=== PATIENT | female | born 1995 ===

== ENCOUNTER 2016-08-16 16:00 | Outpatient (CLI) | payer OTHER ==
[2016-08-16] VITALS (7 sets, daily range): BP systolic 130–146; BP diastolic 89–97
[~2016-08-16] VITALS: Ht 162.6 cm; Wt 68.0 kg
[2016-08-16 16:34] LABS: MEAN CORPUSCULAR HEMOGLOBIN 30.8 pg (27.0-33.0); MEAN CORPUSCULAR HGB CONC 32.9 g/dl (32.0-36.5); MEAN CORPUSCULAR VOLUME 93.7 fl (80.0-96.0); RED CELL DISTRIBUTION WIDTH 13.6 % (11.5-14.5); WHITE BLOOD COUNT 9.1 K/mm3 (4.0-10.0)
[2016-08-16 17:02] LABS: ALBUMIN 2.8 GM/DL (3.2-5.2); ALBUMIN/GLOBULIN RATIO 0.67 (1.00-1.93); ALKALINE PHOSPHATASE 168 U/L (45-117); ALT/SGPT 13 U/L (12-78); ANION GAP 6 MEQ/L (8-16); AST/SGOT 8 U/L (15-37); BILIRUBIN,TOTAL 0.6 MG/DL (0.2-1.0); BLOOD UREA NITROGEN 7 MG/DL (7-18); CALCIUM LEVEL 8.8 MG/DL (8.5-10.1); CARBON DIOXIDE LEVEL 27 MEQ/L (21-32); CHLORIDE LEVEL 106 MEQ/L (98-107); GLOMERULAR FILTRATION RATE > 60.0 (>60); GLUCOSE, FASTING 91 MG/DL (70-105); POTASSIUM SERUM 3.8 MEQ/L (3.5-5.1); SODIUM LEVEL 139 MEQ/L (136-145)
[2016-08-16] MEDS ORDERED: ELID1CRE10 TOP (17:02)
[2016-08-16] MEDS ORDERED: ACET50TA PO (17:02)
[2016-08-16] MEDS ORDERED: PRENTAB9 PO (17:02)
[2016-08-16] MEDS ORDERED: CALCCHW3 PO (17:02)
== END 2016-08-16 18:53 | disposition home or self-care (01) ==
LOC: M LDO 16:00
PROVIDERS: ATTEND Obstetrics & Gynecology
DX: O26.893 Other specified pregnancy related conditions, third trimester (principal); Z3A.38 38 weeks gestation of pregnancy; R03.0 Elevated blood-pressure reading, without diagnosis of hypertension; F41.9 Anxiety disorder, unspecified; F32.9 Major depressive disorder, single episode, unspecified; G43.909 Migraine, unspecified, not intractable, without status migrainosus; O99.343 Other mental disorders complicating pregnancy, third trimester; Z91.040 Latex allergy status; Z88.2 Allergy status to sulfonamides; Z88.8 Allergy status to other drugs, medicaments and biological substances; Z91.041 Radiographic dye allergy status; O99.353 Diseases of the nervous system complicating pregnancy, third trimester

== ENCOUNTER 2016-08-23 07:06 | Inpatient (IN) | payer OTHER ==
[~2016-08-23] VITALS: Ht 162.6 cm; Wt 69.0 kg
[2016-08-23] VITALS (43 sets, daily range): BP systolic 110–175; BP diastolic 67–109
[~2016-08-23 07:06] MED LIST: ACET50TA PO; CALCCHW3 PO; ELID1CRE11 TOP; PRENTAB9 PO
[2016-08-23] MEDS ORDERED: LR 1,000 ML IV SCH ×2 (08:53)
[2016-08-23] MEDS ORDERED: OXYTOCIN DRIP 30 UNITS in APPROPRIATE DILUENT 1 EA IV SCH ×2 (09:00→20:11)
[2016-08-23] MEDS ORDERED: LABETALOL 200 MG TAB PO SCH (09:00)
[2016-08-23 09:06] LABS: MEAN CORPUSCULAR HEMOGLOBIN 30.5 pg (27.0-33.0); MEAN CORPUSCULAR HGB CONC 33.8 g/dl (32.0-36.5); MEAN CORPUSCULAR VOLUME 90.3 fl (80.0-96.0); RED CELL DISTRIBUTION WIDTH 13.6 % (11.5-14.5)
--- NOTE | 2016-08-23 09:15 | HPEPDOC ---
Obstetrical History & Physical General Date of Admission Aug 23, 2016 at 07:06 History of Present Illness 21 y/o at 39+2 here for IOL due to CHTN. No LOF/VB. Having ctx's, not feeling them. Pos FM (Christ) Chief Complaint: Induction of labor Information Provided By: Patient Care Care: Good Care Dating Final EDC by: 1st trimester (US) Antepartum Course Diagnos(e)s Rubella Non-immune H/O migraines anxiety/depression CHTN Past Medical History Past Obstetrical History : Past Obstetrical History: Multigravida [employer] History: Spontaneous (x1 2016), Theraputic (2013 x1) Past Medical History Medical History anxiety/depression CHTN migraines Surgical History: Tonsilectomy, Other (ear tubes) Family History Significant Family History: No pertinent family hx Social History Marital Status: Family situation: Spouse/partner home Psychosocial History: Anxiety, Depression * Smoker: non-smoker Alcohol: Denies Drugs: denies Abuse Violence Screening Have you been hit/kicked/slapp: No Have you been sexually assault: No Imunizations Tdap status: current Influenza Status: declined Allergies Coded Allergies: Blue Dyes (Parenteral) (Verified Allergy, Intermediate, SKIN TURNS RED AND ITCHY, 08/16/16) ALL BLUE DYES- IN FOOD,DRINKS AND SKIN PRODUCTS Latex (Verified Allergy, Intermediate, RAISED RASH, 08/16/16) Sulfa Antibiotics (Verified Allergy, Intermediate, HIVES, 08/16/16) Sulfamethoxazole w/Trimethoprim (Verified Allergy, Intermediate, hives, ) Medications Scheduled Calcium Carbonate (Calci-Chew) 1,250 Mg Chw, 1,250 MG PO DAILY Multivitamins/ ( 27-0.8 mg) 1 Tab Tab, 1 TAB PO DAILY Pimecrolimus (Elidel) 1 % Cre, 0 TOP DAILY for ECZEMA Miscellaneous Medications Acetaminophen (Mapap) 500 Mg Tab, 1,000 MG PO for EAR PAIN Physical Examination Physical Examination GENERAL: Alert and oriented times three. ABDOMEN: Gravid and non-tender to touch. FETUS: Is vertex (VTX) by sterile vaginal examination SVE: 3/75/-2 HEART RATE: Regular rate and rhythm. LUNGS: Clear to auscultation (CTA). EXTREMITIES: No edema. No clonus. DTR's normal Laboratory Data 24H LABS Laboratory Tests 2 08/23/16 07:58: Serology Scanned Report Hepatitis B Testing Urine Culture: No Growth Pertinent Laboratoy Data Blood Type: O+ RBC Antibody Screen: Negative HIV: Negative Hepatitis B: Negative Hepatitis C: Unknown Rapid Plasma Reagin: Nonreactive Rubella: Nonreactive (nonimmune) Varicella: Immune Chlamydia/Gonorrhea: Negative Group B Streptococcus: Negative Quad Screen Test: Declined Cystic Fibrosis: Declined Glucose Tolerance Test: 119 Anatomy Ultrasound Ultrasound Date: Apr 15, 2016 Placenta Location: Posterior Normal Anatomy: Yes Placenta Previa: No Other Ultrasounds [id number] grth scan showed 31%ile, nl scan Steroid Therapy Steroid Therapy: No Vaginal Examination Dilation: 3 cm Effacement: 75% Station: -2 Cervical Consistency: Medium Cervical Position: Anterior Presentation: Cephalic presentation Assessment Variability: Moderate Accelerations: Positive Decelerations: None Tocometer Contractions: Yes Frequency: irregular Duration: less than 60 seconds Strength: palpated as mild Assessment/Plan Assessment 39+3 CHTN. Several severe range BP's upon initial assessment/admission. Urine Pr/Cr and serum r/o pre-e labs with admit labs. If no evid signif proteinuria or serum abnl's, will give her some PO labetalol. If signs Pre-E or continued severe range BP's will start Mag Sulfate and her dx will CHTN with SI Pre-E, +/- severe seatures (ongoing dx as of yet). Of note, pt is EXCEEDINGLY anxious, and myself and the RN had to talk her into and through her IV, cx check, etc etc. Plan Admit and orient. Configuration Management Specialist and consent. Diet: clrs Group B Streptococcus (GBS) negative Labs and intravenous (IV) per unit protocol. Counseled on Pitocin and induction of labor (IOL). Will start the pitocin now with her favorable Cx. Lactated Ringers (LR): 125/hr, bolus per SOP prior to epidural (on demand) Anticipate normal spontaneous delivery () MMR prior to d/c from hospital C-S as appropriate. Sessions MD LANCASTER,YODIT Tate MD Aug 23, 2016 09:15
[2016-08-23 09:34] LABS: ALT/SGPT 10 U/L (12-78); AST/SGOT 12 U/L (15-37); BILIRUBIN,TOTAL 0.5 MG/DL (0.2-1.0); CREATININE FOR GFR 0.58 MG/DL (0.55-1.02); GLOMERULAR FILTRATION RATE > 60.0 (>60); URIC ACID 5.5 MG/DL (2.6-6.0)
[2016-08-23] MEDS ORDERED: LACTATED RINGER'S 1000 ML IV ONE (11:45)
[2016-08-23] MEDS ORDERED: FENTANYL 2MCG/ML ROPIVACAINE 0.2% IN 0.9% NACL 200ML IVBAG As Ordered ONE (12:23)
[2016-08-23] MEDS ORDERED: LACTATED RINGER'S 1000 ML IV PRN (13:00)
[2016-08-23] MEDS ORDERED: REFRIGERATOR IV KEYS XX PRN (13:00)
[2016-08-23] MEDS ORDERED: EPIDURAL COMMENT XX SCH (13:00)
[2016-08-23] MEDS ORDERED: diphenhydrAMINE INJ 50MG/ML VIAL (J1200) IV PRN (13:00)
[2016-08-23] MEDS ORDERED: ePHEDrine SULFATE 25 MG/5 ML(5MG/ML) SYRINGE IV PRN (13:00)
[2016-08-23] MEDS ORDERED: NALOXONE INJ 0.4 MG/1 ML VIAL (J2310) IV PRN (13:00)
[2016-08-23] MEDS ORDERED: EPIDURAL/PCA KEYS XX PRN (13:00)
[2016-08-23] MEDS ORDERED: FENTANYL/ROPIVACAINE/NACL BAG 200 ML EPIDURAL SCH (13:00)
[2016-08-23] MEDS ORDERED: ONDANSETRON 4MG/2ML VIAL (J2405) IV PRN (13:00)
--- NOTE | 2016-08-23 14:47 | IPNPDOC ---
Text Note Date of Service The patient was seen on 08/23/16. NOTE Pit at 12 mu/min, reg ctx's Now s/p epidural and reports some LOF NST mostly Cat 1, now cat 2 with early decels Cx /-1, obv bloody show and sheets quite wet, c/w SROM just now Doing well, will watch NST closely and recheck in ~2 hrs, sooner prn Sessions VS,Jada, I+O VS, Jada I+O Laboratory Tests 08/23/16 08:52 Red Blood Count 3.88 L, Mean Corpuscular Volume 90.3, Mean Corpuscular Hemoglobin 30.5, Mean Corpuscular Hemoglobin Concent 33.8, Red Cell Distribution Width 13.6, Aspartate Amino Transf (AST/SGOT) 12 L, Alanine Aminotransferase (ALT/SGPT) 10 L, Lactate Dehydrogenase 158, Total Bilirubin 0.5 , Uric Acid 5.5 Vital Signs Date Time Temp Pulse Resp B/P (MAP) Pulse Ox O2 Delivery O2 Flow Rate FiO2 08/23/16 13:55 68 123/74 (90) 08/23/16 12:04 98.3 18 SESSIONS,YODIT Tate MD Aug 23, 2016 14:47
--- NOTE | 2016-08-23 17:17 | IPNPDOC ---
Text Note Date of Service The patient was seen on 08/23/16. NOTE NST Cat 2, mod adrian, no persistent decels, reg ctx's Cx C/C/+2/SAVANAH lots of explanation after lots of questions Start pushing Sessions VS,Jada, I+O VS, Jada, I+O Laboratory Tests 08/23/16 08:52 Red Blood Count 3.88 L, Mean Corpuscular Volume 90.3, Mean Corpuscular Hemoglobin 30.5, Mean Corpuscular Hemoglobin Concent 33.8, Red Cell Distribution Width 13.6, Aspartate Amino Transf (AST/SGOT) 12 L, Alanine Aminotransferase (ALT/SGPT) 10 L, Lactate Dehydrogenase 158, Total Bilirubin 0.5 , Uric Acid 5.5 Vital Signs Date Time Temp Pulse Resp B/P (MAP) Pulse Ox O2 Delivery O2 Flow Rate FiO2 08/23/16 13:55 68 123/74 (90) 08/23/16 12:04 98.3 18 SESSIONS,YODIT Tate MD Aug 23, 2016 17:17
[2016-08-23] MEDS ORDERED: MEASLES,MUMPS,RUBELLA VACCINE INJ (MMR-II) (90707) SC SCH (20:15)
[2016-08-23] MEDS ORDERED: METOCLOPRAMIDE INJ 10MG/2ML VIAL (J2765) IV PRN (20:15)
[2016-08-23] MEDS ORDERED: RHOGAM 300 MCG (1500 IU) INJ (J2790) IM SCH (20:15)
[2016-08-23] MEDS ORDERED: DIBUCAINE 1% OINTMENT 30GM TOP PRN (20:15)
--- NOTE | 2016-08-23 20:22 | DNPDOC ---
[facility] Delivery Note Delivery Note DATE OF DELIVERY: Aug 23, 2016 at 07:06 PREDELIVERY DIAGNOSIS: 39 2/7 weeks' gestation and labor. POST DELIVERY DIAGNOSIS: Delivered. PROCEDURE: Spontaneous vaginal delivery SUSTAINABILITY MANAGER: ANESTHESIA: epidural ESTIMATED BLOOD LOSS: 200 mL. FINDINGS: 6pound 15ounce male infant, Score 6/9, nuchal cord times 1 DELIVERY SUMMARY: Pushed well for most of 2 hours but was exhausted and also noted to have 5 late decels in a row. Consented for outlet vacuum. Station +3 , SAVANAH, slight asynclitism noted. R/B/I/A d/w pt and Dr Azevedo present (NICU). Placed along sagittal suture 1-2 cm from post fontanelle. No pop-offs, good descent with each push, good effort. No epis needed. Pressure released after each set ctx's. With vtx del, rotated spontaneously to RIGO, vac removed, cord reduced and no delay of either ant/post shoulder. To abd on a towel. Cord C/C by FOB. then to resuscitation table. Cord blood. Placenta intact. Fundus firm, pit going. Right labial lac and small lac on post vag wall both repaired with 3-0 vicryl, no perineal lac. Good hemostasis/cosmesis. Uncomplicated. Sessions MD LANCASTER,YODIT Tate MD Aug 23, 2016 20:22
[2016-08-23] MEDS ORDERED: LABETALOL 200 MG TAB PO ONE (20:30)
[2016-08-23] MEDS: IBUPROFEN 800 MG TAB PO PRN (20:39)
[2016-08-23] MEDS ORDERED: DOCUSATE SODIUM 100 MG CAP PO SCH (21:00)
[2016-08-24] MEDS: ACETAMINOPHEN TAB 650MG DOSE (2X325MG) PO PRN ×3 (00:31→18:01)
[2016-08-24] MEDS: IBUPROFEN 800 MG TAB PO PRN ×2 (05:05→14:53)
--- NOTE | 2016-08-24 05:28 | IPNPDOC ---
Text Note Date of Service The patient was seen on 08/24/16. NOTE PPD1 prog note States feeling well, no complaints. No heavy VB. Pain controlled. Voiding, ambulatory. Bonding well and breast feeding well. VSSAF CTAB RRR Ut at U-2, firm Ext no CCE a/p: Doing well. Routine PP care. Likely d/c tomorrow afternoon Sessions Jada MENDEZ, I+O Jada REECE I+O Laboratory Tests 08/23/16 08:52 Red Blood Count 3.88 L, Mean Corpuscular Volume 90.3, Mean Corpuscular Hemoglobin 30.5, Mean Corpuscular Hemoglobin Concent 33.8, Red Cell Distribution Width 13.6, Aspartate Amino Transf (AST/SGOT) 12 L, Alanine Aminotransferase (ALT/SGPT) 10 L, Lactate Dehydrogenase 158, Total Bilirubin 0.5 , Uric Acid 5.5 Vital Signs Date Time Temp Pulse Resp B/P (MAP) Pulse Ox O2 Delivery O2 Flow Rate FiO2 08/23/16 21:06 83 120/71 (87) 08/23/16 17:39 98.7 20 I&O- Last 24 Hours up to 6 AM 08/24/16 06:00 Intake Total 2375 ml Output Total 750 ml Balance 1625 ml SESSIONS,YODIT Tate MD Aug 24, 2016 05:28
[2016-08-24 05:49] VITALS: BP 123/72
[2016-08-24] MEDS ORDERED: PRENATAL VITAMINS CHEWABLE TABLET PO SCH (09:00)
[2016-08-24] MEDS: PRENATAL VITAMINS CHEWABLE TABLET PO SCH (09:42)
[2016-08-24] MEDS: DOCUSATE SOD LIQ 100MG/10ML UDC PO SCH ×2 (09:42→20:41)
[2016-08-24 17:52] VITALS: BP 143/83
[2016-08-25] MEDS: ACETAMINOPHEN TAB 650MG DOSE (2X325MG) PO PRN (02:04)
[2016-08-25 06:00] VITALS: BP 126/73
[2016-08-25] MEDS: PRENATAL VITAMINS CHEWABLE TABLET PO SCH (07:59)
[2016-08-25] MEDS: DOCUSATE SOD LIQ 100MG/10ML UDC PO SCH (07:59)
[2016-08-25] MEDS: IBUPROFEN 800 MG TAB PO PRN (08:00)
[2016-08-25] MEDS ORDERED: IBUP-1114 PO (11:02)
== END 2016-08-25 14:15 | disposition home or self-care (01) | DRG 774 ==
LOC: M LDI 07:06 → M OBS 22:14
PROVIDERS: ADMIT Obstetrics & Gynecology; ATTEND Obstetrics & Gynecology
PROC: 10D07Z6 Extraction of Products of Conception, Vacuum, Via Natural or Artificial Opening (ICD-10-PCS; principal; 2016-08-23)
PROC: 3E033VJ Introduction of Other Hormone into Peripheral Vein, Percutaneous Approach (ICD-10-PCS; 2016-08-23)
PROC: 0HQ9XZZ Repair Perineum Skin, External Approach (ICD-10-PCS; 2016-08-23)
DX: O10.02 Pre-existing essential hypertension complicating childbirth (principal); Z37.0 Single live birth; Z3A.39 39 weeks gestation of pregnancy; Z91.040 Latex allergy status; Z88.2 Allergy status to sulfonamides; Z91.048 Other nonmedicinal substance allergy status; Z79.899 Other long term (current) drug therapy; O75.81 Maternal exhaustion complicating labor and delivery; O70.0 First degree perineal laceration during delivery; O69.82X0 Labor and delivery complicated by other cord entanglement, without compression, not applicable or unspecified; O76 Abnormality in fetal heart rate and rhythm complicating labor and delivery